=== PATIENT | female | born 1970 | race African-American/Black ===

== ENCOUNTER 2016-12-19 17:26 | Emergency (ER) | payer SELFPAY ==
[~2016-12-19] VITALS: Ht 162.6 cm; Wt 75.0 kg
[~2016-12-19 17:26] MED LIST: CIPRO 250MG TA250 MG PO; DOXYCYCLINE100 M2 PO; MVI; PEN-VEE K250 MG PO; PREMPRO 0.625/21 TAB PO; TYLENOL 500MG500 MG PO; ULTRAM 50MG TAB50 MG PO
[2016-12-19 17:31] VITALS: BP 157/100; TEMP 99.2
[2016-12-19] MEDS ORDERED: LINZESS290CAP (18:05)
[2016-12-19] MEDS ORDERED: CYMBALTA 30MG30 MG PO (18:06)
[2016-12-19 18:53] VITALS: PULSE 86
== END 2016-12-19 18:54 | disposition home or self-care (01) ==
LOC: COL.ER 17:26
DX: J02.9 Acute pharyngitis, unspecified (principal); F17.210 Nicotine dependence, cigarettes, uncomplicated

== ENCOUNTER → 2018-07-02 | Outpatient (CLI) | payer OTHER ==
[~2018-07-02] MED LIST changes: +CYMBALTA 30MG30 MG PO; +LINZESS290CAP
== END ==
LOC: MC.RAD 08:08
DX: Z12.31 Encounter for screening mammogram for malignant neoplasm of breast (principal); N64.89 Other specified disorders of breast

== ENCOUNTER → 2018-07-09 | Outpatient (CLI) | payer OTHER | LOC: MC.RAD 07:00 | DX: N64.89 Other specified disorders of breast (principal) | CPT/HCPCS: G0279 ==

== ENCOUNTER 2018-11-24 07:59 | Day surgery (SDC) | payer SELFPAY ==
[~2018-11-24] VITALS: Ht 162.6 cm; Wt 73.1 kg
[2018-11-24 08:17] VITALS: BP 134/92; PULSE 93; TEMP 97.8
[2018-11-24] MEDS ORDERED: PRILOSEC 20MG20 MG PO (09:33)
[2018-11-24 09:45] VITALS: BP 133/88; PULSE 104; TEMP 97.1
--- NOTE | 2018-11-24 09:45 | NUR ---
Patient arrives to [facility] via cart, accompanied by endo RN Yoselyn. She is alert and oriented. She ambulates with steady gait to chair in room. Monitoring applied - VSS and WNL on room air. Bedside report recieved. Gag reflex checked and is intact. Denies any pain or nausea. Offered and receives water and a muffin to eat. Texts her daughter for a ride home. Call light in reach. Will continue to monitor.
--- NOTE | 2018-11-24 09:49 | NUR ---
Dr. Barnes at the bedside and talks with patient.
[2018-11-24 10:00] VITALS: BP 122/94; PULSE 96
--- NOTE | 2018-11-24 10:00 | NUR ---
VSS and WNL on room air. Denies any pain, nausea, or need.
[2018-11-24 10:15] VITALS: BP 131/89; PULSE 87
--- NOTE | 2018-11-24 10:15 | NUR ---
VSS and WNL on room air. Discharge criteria has been met. Discharge instructions discussed, denies any questions, and verbalizes understanding. PIV removed with catheter intact and hemostasis achieved. Patient changing to clothing independently.
--- NOTE | 2018-11-24 10:30 | NUR ---
Escorted to exit via wheelchair. Discharged to home with ride in private vehicle at 1030.
== END 2018-11-24 10:30 | disposition home or self-care (01) ==
LOC: SDCO 07:59
DX: K29.30 Chronic superficial gastritis without bleeding (principal); K58.1 Irritable bowel syndrome with constipation; I10 Essential (primary) hypertension
CPT/HCPCS: J2250; J3010; J7030

== ENCOUNTER → 2019-02-02 | Outpatient (CLI) | payer OTHER ==
[~2019-02-02] MED LIST changes: +PRILOSEC 20MG20 MG PO
[2019-02-02 09:18] LABS: ALBUMIN 4.4 gm/dL (3.5-5.0); BILIRUBIN,TOTAL 0.4 mg/dL (0.0-1.0); CREATININE, serum 0.56 (0.52-1.25); POTASSIUM 3.8 mmol/L (3.4-5.0); TOTAL PROTEIN 7.7 gm/dL (6.4-8.2)
== END ==
LOC: COL.LAB 08:47
DX: I10 Essential (primary) hypertension (principal)

== ENCOUNTER → 2019-02-23 | Outpatient (CLI) | payer OTHER | LOC: COL.LAB 14:20 | DX: R07.9 Chest pain, unspecified (principal); M79.669 Pain in unspecified lower leg ==

== ENCOUNTER → 2019-09-15 | Outpatient (CLI) | payer SELFPAY ==
[2019-09-15 16:02] LABS: HEMOGLOBIN 12.3 g/dl (12.5-16.0); MEAN CELL VOLUME 89 fl (80.0-100.0); MEAN CORPUSCULAR HEMOGLOBIN 30 pg (27.0-31.0); MEAN CORPUSCULAR HGB CONC 34 g/dl (33.0-37.0); MEAN PLATELET VOLUME 10.7 fl (7.4-10.4); PLATELET COUNT 292 K/mm3 (130-400); RED BLOOD COUNT 4.14 M/mm3 (4.10-5.30); REDCELL DISTRIBUTION WIDTH-CV 14.2 % (11.5-14.5)
[2019-09-15 16:03] LABS: HEMATOCRIT 36.7 % (37.0-47.0)
[2019-09-15 16:09] LABS: ALBUMIN 4.5 gm/dL (3.5-5.0); BILIRUBIN,TOTAL 0.4 mg/dL (0.0-1.0); CALCIUM 9.8 mg/dL (8.4-10.2); CREATININE, serum 0.58 (0.52-1.25); POTASSIUM 3.8 mmol/L (3.4-5.0); TOTAL PROTEIN 7.9 gm/dL (6.4-8.2)
== END ==
LOC: COL.LAB 15:30
DX: M79.89 Other specified soft tissue disorders (principal); R51 Headache; R53.83 Other fatigue

== ENCOUNTER → 2019-09-28 | Outpatient (CLI) | payer SELFPAY ==
[2019-09-28 16:38] LABS: C-REACTIVE PROTEIN 1.2 mg/dL (0.0-0.9)
== END ==
LOC: COL.LAB 16:01
PROVIDERS: Internal Medicine
DX: M79.10 Myalgia, unspecified site (principal)

== ENCOUNTER → 2019-10-21 | Outpatient (CLI) | payer OTHER | LOC: MC.RAD 09:06 | DX: N63.20 Unspecified lump in the left breast, unspecified quadrant (principal) ==

== ENCOUNTER → 2021-02-08 | Outpatient (CLI) | payer SELFPAY ==
[~2021-02-08] MED LIST changes: +CYMBALTA 20MG20 MG PO; +GLUCOPHAGE1000 MG PO; +GLUCOTROL 5M5 MG/TAB PO; +HCTZ12.5TAB PO; +LINZESS290CAP PO; +LIPITOR 10MG10 MG PO; +LYRICA 50MG CAP50 MG PO; +MEDROL 4MG DOSPA4 MG PO; +NORCO 325 MG-51 TAB PO; +PREMPRO 0.625 M1 TA1 PO; +PRINIVIL5 MG PO
== END ==
LOC: COL.RAD 09:37
DX: M17.12 Unilateral primary osteoarthritis, left knee (principal)

== ENCOUNTER → 2021-02-20 | Outpatient (CLI) | payer SELFPAY | LOC: COL.RAD 11:42 | DX: Z79.899 Other long term (current) drug therapy (principal) ==

== ENCOUNTER 2021-03-15 12:27 | Emergency (ER) | payer OTHER ==
[~2021-03-15] VITALS: Ht 162.6 cm; Wt 65.9 kg
[~2021-03-15 12:27] MED LIST changes: -CYMBALTA 20MG20 MG PO; -GLUCOPHAGE1000 MG PO; -GLUCOTROL 5M5 MG/TAB PO; -HCTZ12.5TAB PO; -LINZESS290CAP PO; -LIPITOR 10MG10 MG PO; -LYRICA 50MG CAP50 MG PO; -MEDROL 4MG DOSPA4 MG PO; -NORCO 325 MG-51 TAB PO; -PREMPRO 0.625 M1 TA1 PO; -PRINIVIL5 MG PO
[2021-03-15 12:49] VITALS: BP 149/83
[2021-03-15] MEDS ORDERED: PRINIVIL5 MG PO (14:29)
[2021-03-15] MEDS ORDERED: GLUCOPHAGE1000 MG PO (14:29)
[2021-03-15] MEDS ORDERED: GLUCOTROL 5M5 MG/TAB PO (14:29)
[2021-03-15] MEDS ORDERED: LIPITOR 10MG10 MG PO (14:30)
[2021-03-15] MEDS ORDERED: HCTZ12.5TAB PO (14:30)
[2021-03-15] MEDS ORDERED: LYRICA 50MG CAP50 MG PO (14:31)
[2021-03-15] MEDS ORDERED: PREMPRO 0.625 M1 TA1 PO (14:31)
[2021-03-15] MEDS ORDERED: CYMBALTA 20MG20 MG PO (14:32)
[2021-03-15] MEDS ORDERED: LINZESS290CAP PO (14:32)
[2021-03-15] MEDS ORDERED: NORCO 325 MG-51 TAB PO (14:47)
[2021-03-15] MEDS ORDERED: MEDROL 4MG DOSPA4 MG PO (14:47)
[2021-03-15 15:12] VITALS: PULSE 86
== END 2021-03-15 15:12 | disposition home or self-care (01) ==
LOC: COL.ER 12:27
DX: M54.12 Radiculopathy, cervical region (principal); I10 Essential (primary) hypertension; E11.9 Type 2 diabetes mellitus without complications; F17.210 Nicotine dependence, cigarettes, uncomplicated; Z79.84 Long term (current) use of oral hypoglycemic drugs; Z79.899 Other long term (current) drug therapy

== ENCOUNTER → 2021-03-21 | Outpatient (CLI) | payer OTHER ==
[~2021-03-21] MED LIST changes: +CYMBALTA 20MG20 MG PO; +GLUCOPHAGE1000 MG PO; +GLUCOTROL 5M5 MG/TAB PO; +HCTZ12.5TAB PO; +LINZESS290CAP PO; +LIPITOR 10MG10 MG PO; +LYRICA 50MG CAP50 MG PO; +MEDROL 4MG DOSPA4 MG PO; +NORCO 325 MG-51 TAB PO; +PREMPRO 0.625 M1 TA1 PO; +PRINIVIL5 MG PO
== END ==
LOC: MC.RAD 10:01
DX: Z12.31 Encounter for screening mammogram for malignant neoplasm of breast (principal)

== ENCOUNTER → 2021-12-24 | Outpatient (CLI) | payer OTHER | LOC: COL.RAD 13:11 | DX: N93.9 Abnormal uterine and vaginal bleeding, unspecified (principal) ==

== ENCOUNTER → 2022-05-22 | Outpatient (CLI) | payer OTHER | LOC: COL.RAD 06:57 | DX: R10.11 Right upper quadrant pain (principal); R10.31 Right lower quadrant pain; R11.2 Nausea with vomiting, unspecified | CPT/HCPCS: A9537; J2805 ==